=== PATIENT | male | born 1960 | race Caucasian/White ===

== ENCOUNTER 2019-02-22 10:30 | Inpatient (IN) | payer OTHER ==
[~2019-02-22] VITALS: Ht 182.9 cm; Wt 101.6 kg
[~2019-02-22 10:30] MED LIST: ASPI-1044 PO; BUPR1FIL3 SL
[2019-03-15] VITALS (44 sets, daily range): BP systolic 113–159; BP diastolic 62–118; PULSE 60–128; RESP 14–26
[2019-03-15] MEDS ORDERED: LANSOPRAZOLE 30 MG CAP PO ONE (07:00)
[2019-03-15] MEDS ORDERED: CEFAZOLIN 1 GM/50 ML (PMX) 50 ML IVPB ONE (07:00)
[2019-03-15] MEDS ORDERED: TRANEXAMIC ACID 1GM/100ML(PMX) 100 ML INTRA-OP X1 IVPB ONE (07:00)
[2019-03-15] MEDS ORDERED: LACTATED RINGER'S 1,000 ML IV SCH (07:00)
[2019-03-15] MEDS ORDERED: ACETAMINOPHEN 500 MG TAB PO ONE (07:00)
[2019-03-15] MEDS ORDERED: ONDANSETRON 4 MG INJ IV ONE (07:00)
[2019-03-15] MEDS ORDERED: TRANEXAMIC ACID 1GM/100ML(PMX) 100 ML PRE-OP X1 IVPB ONE (07:00)
[2019-03-15] MEDS ORDERED: oxyCODONE (CR) 10 MG TAB [oxyCONTIN] PO ONE (07:00)
[2019-03-15] MEDS ORDERED: DEXAMETHASONE 4 MG/ML 1 ML INJ IV ONE (07:00)
[2019-03-15] MEDS ORDERED: POLYMYXIN B 500000 UNIT INJ ONE (09:58)
--- NOTE | 2019-03-15 10:15 | PREAC ---
Date/Time of Note Date/Time of Note DATE: 03/15/19 TIME: 10:14 Anesthesia Eval and Record Evaluation Time Pre-Procedure Interview DATE: 03/15/19 TIME: 10:14 Age 58 Sex male NPO: 8 hrs Preoperative diagnosis left knee primary OA Planned procedure left knee total replacement Past Medical History Past Medical History: None Surgery & Anesthesia Issues No known issue Meds Anticoagulation: No Beta Joanie within 24 hr: No Reason Beta Joanie not given: Pt. not on B-Joanie Reported Medications Buprenorphine Hcl-Naloxone Hcl (Suboxone SL) 8-2 Mg Film, 1 FILM SL DAILY, FILM 03/15/19 Current Medications Ropivacaine/ Morphine Sulfate/ Clonidine/ Epinephrine/ Ketorolac Tromethamine/ Vancomycin HCl/ Sodium Chloride INTRA-OP INJ ; Start 03/15/19 at 16:30 Lactated Ringer's 1,000 ml @ 125 mls/hr Q8H IV Last administered on 03/15/19at 09:40; Admin Dose 125 MLS/HR; Start 03/15/19 at 07:00; Stop 03/15/19 at 14:59 Meds reviewed: Yes Allergies Coded Allergies: No Known Allergy (Unverified , 03/15/19) Allergies Reviewed: Yes Labs/Studies Labs Reviewed: Reviewed by anesthesiologist test: N/A Studies: ECG (sr), CXR (nl) Pre-procedure Exam Last vitals Vital Signs Date Temp Pulse Resp B/P (MAP) Pulse Ox O2 O2 Flow FiO2 Time Delivery Rate 03/15/19 97.7 75 16 157/95 98 Room Air 10:00 (115) Airway: Adequate mouth opening Mallampati: Mallampati I 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) Lung: Normal Heart: Normal ASA Physical Status ASA physical status: 1 Emergency: None Planned Anesthetic General/MAC: LMA Neuraxial: Spinal Nerve block: Femoral (left) Planned Pain Management Single shot nerve block, Parenteral pain med Pre-operative Attestations Prior to commencing anesthesia and surgery, the patient was re-evaluated, there was verification of: *The patient's identity *The results of appropriate recent lab work and preoperative vital signs *The above evaluation not changing prior to induction *Anesthetic plan, risk benefits, alternative and complications discussed with patient/family; questions answered; patient/family understands, accepts and wishes to proceed. TIKI RICHTER MD Mar 15, 2019 10:14
[2019-03-15] MEDS ORDERED: TRANEXAMIC ACID 1GM/100ML(PMX) 100 ML ONE ×3 (10:26→13:17)
[2019-03-15] MEDS ORDERED: PROPOFOL 20 ML ONE (10:26)
[2019-03-15] MEDS ORDERED: CEFAZOLIN 1 GM INJ ONE (10:26)
[2019-03-15] MEDS ORDERED: ONDANSETRON 4 MG INJ ONE (10:27)
[2019-03-15] MEDS ORDERED: morphine SULFATE/PF (10 MG/10 ML) INJ ONE (10:27)
[2019-03-15] MEDS ORDERED: KETOROLAC 30 MG INJ ONE (10:27)
[2019-03-15] MEDS ORDERED: METOCLOPRAMIDE 10 MG INJ ONE (10:27)
[2019-03-15] MEDS ORDERED: MIDAZOLAM 1 MG/ML 2 ML INJ ONE (10:27)
[2019-03-15] MEDS ORDERED: HYDROmorphONE 1 MG/5 ML IV SYRINGE IV PRN ×2 (10:30)
[2019-03-15] MEDS ORDERED: ONDANSETRON 4 MG INJ IV PRN (10:30)
[2019-03-15] MEDS ORDERED: FENTAnyl 50 MCG/ML VIAL IV PRN ×3 (10:30)
[2019-03-15] MEDS ORDERED: EPHEDrine 25 MG/5 ML SYG IV PRN (10:30)
[2019-03-15] MEDS ORDERED: MEPERIDINE 25 MG INJ IV PRN (10:30)
[2019-03-15] MEDS ORDERED: DIPHENHYDRAMINE 50 MG INJ IV PRN (10:30)
--- NOTE | 2019-03-15 10:35 | HPN ---
Date/Time of Note Date/Time of Note DATE: 03/15/19 TIME: 10:35 Interval H&P Admission Note Pt. seen H&P reviewed: No system changes TARIQ CABRAL MD Mar 15, 2019 10:35
[2019-03-15] MEDS ORDERED: FENTAnyl 50 MCG/ML VIAL ONE (10:51)
[2019-03-15] MEDS ORDERED: ACETAMINOPHEN 1000MG/100ML IV 100 ML IVPB ONE (11:30)
[2019-03-15] MEDS ORDERED: BACITRACIN 50000 UNITS INJ IRR ONE (11:57)
[2019-03-15] MEDS ORDERED: ROPIVACAINE 0.2% 20 ML VIAL ONE (13:37)
--- NOTE | 2019-03-15 14:17 | SIPON ---
Date/Time of Note Date/Time of Note DATE: 03/15/19 TIME: 14:16 Operative Report Preoperative Diagnosis Left Knee Osteoarthritis Postoperative Diagnosis Same Operation/Procedure Performed Complex Left Total Knee Arthroplasty Surgeon Krysta Quevedo MD certified physician assistant Santiago Seymour MD Anesthesia: spinal Estimated blood loss: other Transfusion Required none Specimen bone Grafts/Implants none Complications none KRYSTA QUEVEDO MD Mar 15, 2019 14:17
[2019-03-15] MEDS ORDERED: NALOXONE (0.4 MG/ML) INJ IV PRN (14:30)
[2019-03-15] MEDS ORDERED: MAGNESIUM HYDROXIDE 30ML CUP PO PRN (14:30)
[2019-03-15] MEDS ORDERED: NA PHOSPHATE/BIPHOS 133 ML ENEMA PR PRN (14:30)
[2019-03-15] MEDS ORDERED: SENNA/DOCUSATE NA (8.6MG/50MG) TAB PO PRN (14:30)
[2019-03-15] MEDS ORDERED: DOCUSATE SODIUM 100 MG CAP PO ONE (14:30)
[2019-03-15] MEDS ORDERED: BISACODYL 10 MG SUPP PR PRN (14:30)
--- NOTE | 2019-03-15 14:37 | OPR ---
Date/Time of Note Date/Time of Note DATE: 03/15/19 TIME: 14:26 Operative Report Free Text/Dictation DATE OF OPERATION: March 15, 2019 SURGEON: Tariq Cabral MD BULKING MACHINE OPERATOR: Cristóbal Seymour MD PREOPERATIVE DIAGNOSIS: Left knee osteoarthritis. POSTOPERATIVE DIAGNOSIS: Left knee osteoarthritis. PROCEDURES PERFORMED: Complex left total knee arthroplasty, CPT code 58828, modifier 22. ANESTHESIOLOGIST: Dr. Susan Barrett ANESTHESIA: Spinal. ESTIMATED BLOOD LOSS: 200 mL. COMPLICATIONS: None. SPECIMENS: Resected bone. DISPOSITION: PACU in stable condition. TOURNIQUET TIME: 107 minutes at 250 mmHg. IMPLANT USED: [employer] size 6 Sarah tibial baseplate, size 7 posterior stabilized Oxinium femur, size 9 high flexion polyethylene, size 35 mm patella. INDICATION FOR PROCEDURE: This is an 58-year-old male with end-stage osteoarthritis of the left knee and significant varus who had failed nono perative management. Risks, benefits, alternatives of surgical intervention were discussed with the patient and informed consent was obtained. The risks of surgery include but are not limited to infection, deep venous thrombosis, pulmonary embolism, damage to nerves and blood vessels, numbness around incision site, stiffness of knee, need for total knee manipulation under anesthesia, need for blood transfuion, heart attack, stroke, risks associated with anesthesia, implant loosening, wear of prosthesis, need for revision surgery, and . DESCRIPTION OF PROCEDURE: The patient was met in the preoperative suite. The correct operative site was confirmed and marked. The patient was then brought into operating room. After induction of anesthesia, the patient was placed in the supine position on the operating room table. A tourniquet was applied to left upper thigh. The left lower extremity was prepped and draped in the usual sterile fashion. Before starting, a timeout was taken to identify the correct operative site and confirm preoperative antibiotics consisting of 1 g of IV Ancef, along with 1 g of tranexamic acid were administered. At this point, the left leg was elevated and exsanguinated with an Esmarch and tourniquet was then insufflated for the above noted time. A midline incision was made and median parapatellar arthrotomy was then completed. The lateral patellar retinacular ligaments were released. A sleeve of tissue was released from the medial proximal tibia. The cruciate ligaments and the menisci were then excised. At this point, the custom distal femur cutting block was then pinned and 9.5 mm was resected from the distal femur. The 4-in-1 cutting block, size 7 was then placed. An rafy wing was used to confirm that notching of the anterior cortex of the femur would not occur. The anterior and posterior condylar cuts were completed followed by the anterior and posterior chamfer cuts. The osteophytes were then removed with a rongeur. At this point, the tibia was subluxed anteriorly. Appropriate retractors were placed. The custom tibial cutting block was then pinned. The drop was used to ensure the correct alignment. Approximately 11 mm was resected off the lateral tibial plateau. There was no resection off the medial tibial plateau due to his varus deformity. Osteophytes were then removed. At this point, the flexion extension gaps were checked with a 9 mm gap radio program checker and noted to be tight in both extension and flexion. Further medial release was performed, and additional 2 mm was resected from the proximal tibia. The posterior medial capsule was also released. Further osteophytes were removed from the posterior medial cortex of the tibia. The flexion and extension gaps were checked at this point with a 9 mm gap radio program checker, and noted to be equal. Next, trial 7 femur was then pinned and the box cut was then completed. The tibia was then subluxed anteriorly and measured to size 6. The tibial tray was then pinned and a keel was then punched. A medial tibial osteotomy was performed. The trial components were placed with a 9 mm polyethylene and noted to have full extension and greater than 120 degrees of flexion. The patella was then subluxed laterally and sized to 24 mm. Approximately, 9 mm was resected. The patellar was sized to 35 mm. The button was placed and noted to have excellent patellar tracking. The trial components were removed. All bony surfaces were pulse lavaged and dried. The appropriate size components were then cemented and the knee was held in extension with a 9 mm trial polyethylene until the cement cured. Once the cement had cured, the trial polyethylene was removed and the appropriate size polyethylene was then placed. The tranexamic acid was redosed. The cocktail was then injected. The extensor mechanism was closed using #1 Stratafix and the subcutaneous tissue with 2-0 Vicryl and the skin with 4-0 Monocryl. Steri-Strips were applied along with a sterile dressing. There were no complications. The patient was transferred to PACU in stable condition. POSTOPERATIVE CARE: The patient will be weightbearing as tolerated. The patient will work with physical therapy, and will receive two additional doses of IV antibiotics along with aspirin 81 mg p.o. b.i.d. for 6 weeks. Upon discharge, patient will follow up in my office within 2 weeks postoperatively. Modifier 22: This case requires a modifier 22 given the significant varus deformity of the patient, technical difficulty, and length of case. TARIQ CABRAL MD Mar 15, 2019 14:37
[2019-03-15] MEDS: CEFAZOLIN 2 GM/50 ML (PMX) 50 ML IVPB SCH ×2 (15:36→23:38)
[2019-03-15] MEDS: HYDROmorphONE 1 MG/5 ML IV SYRINGE IV PRN ×4 (16:29→18:32)
[2019-03-15] MEDS ORDERED: HIP PAIN COCKTAIL VANCO INJ SCH ×7 (16:30)
[2019-03-15] MEDS ORDERED: HYDROmorphONE 1 MG/5 ML IV SYRINGE IV ONE (18:18)
--- NOTE | 2019-03-15 18:55 | CONS ---
Assessment/Plan Assessment/Plan Assessment/Plan (Daily) Assessment and plan: 58-year-old male prior history of presumed arthritis and prior knee surgeries who was brought in for total knee replacement of the left knee. #Left knee pain: Again status post total left knee replacement occurred earlier today -Continue care as ordered by primary orthopedic surgery team including pain control medications, fluids, therapy, labs We will continue to follow along with you Consultation Date/Type/Reason Admit Date/Time Mar 15, 2019 at 08:30 Date/Time of Note DATE: 03/15/19 TIME: 18:54 Hx of Present Illness 58-year-old male prior history of presumed arthritis and prior knee surgeries who was brought in for total knee replacement of the left knee. Patient underwent this earlier today. Presently denies any chest pain, shortness of breath, upper lower GI bleeding, nausea vomiting, fever chills, diarrhea or constipation. Past Medical History Home Meds Reported Medications Buprenorphine Hcl-Naloxone Hcl (Suboxone SL) 8-2 Mg Film, 1 FILM SL DAILY, FILM 03/15/19 Medications Current Medications Ropivacaine/ Morphine Sulfate/ Clonidine/ Epinephrine/ Ketorolac Tromethamine/ Vancomycin HCl/ Sodium Chloride INTRA-OP INJ ; Start 03/15/19 at 16:30 Hydromorphone HCl (Dilaudid) 0.4 mg PACU PRN IV MOD PAIN 4-6 Last administered on 03/15/19at 18:32; Admin Dose 0.4 MG; Start 03/15/19 at 10:30; Stop 03/15/19 at 23:00 IV Flush (NS 3 ml) 3 ml PER PROTOCOL IV ; Start 03/15/19 at 14:30 Oxycodone HCl (Roxicodone) 5 mg Q4H PRN PO .PAIN; Start 03/15/19 at 14:30 Acetaminophen (Tylenol Tab) 1,000 mg Q8 PO ; Start 03/15/19 at 22:00 Ketorolac Tromethamine (Toradol) 15 mg Q6H PRN IV .PAIN; Start 03/15/19 at 14:30 Cefazolin Sodium/ Dextrose 50 ml @ 100 mls/hr Q8H IVPB Last administered on 03/15/19at 15:36; Admin Dose 100 MLS/HR; Start 03/15/19 at 15:00; Stop 03/16/19 at 07:29 Celecoxib (Celebrex) 100 mg BID PO ; Start 03/16/19 at 09:00 Gabapentin (Neurontin) 100 mg TID PO ; Start 03/15/19 at 21:00 Pantoprazole (Protonix Tab) 40 mg DAILY@06 PO ; Start 03/17/19 at 06:00 Docusate Sodium (Colace) 200 mg BID PO ; Start 03/16/19 at 09:00; Stop 03/19/19 at 08:59 Simethicone (Mylicon) 80 mg TID PRN PO .GAS; Start 03/15/19 at 14:30 Senna/Docusate Sodium (Senokot-S) 2 tab BID PRN PO .CONSTIPATION; Start 03/15/19 at 14:30 Magnesium Hydroxide (Milk Of Mag) 30 ml HS PRN PO .CONSTIPATION; Start 03/15/19 at 14:30 Bisacodyl (Dulcolax Supp) 10 mg DAILY PRN [place] .CONSTIPATION; Start 03/15/19 at 14:30 Sodium Biphosphate/ Sodium Phosphate (Fleet Enema) 133 ml DAILY PRN [place] .CONSTIPATION; Start 03/15/19 at 14:30 Naloxone HCl (Narcan) 0.2 mg Q2M PRN IV .RESP RATE; Start 03/15/19 at 14:30 Aspirin (Halfprin) 81 mg BID PO ; Start 03/16/19 at 09:00 Allergies: Coded Allergies: No Known Allergy (Unverified , 03/15/19) Past Surgical History Past Surgical Hx: other (Right knee surgery x2, prior left knee surgery, left shoulder surgery, triceps surgery) Social History Alcohol Use: none Smoking Status: Never smoker Drug Use: none Exam/Review of Systems Exam Vitals Vital Signs Date Temp Pulse Resp B/P (MAP) Pulse Ox O2 O2 Flow FiO2 Time Delivery Rate 03/15/19 96 26 124/81 95 Room Air 17:43 (95) 03/15/19 3.0 16:48 03/15/19 98.0 14:10 Exam GENERAL: lying in bed, in no apparent distress HEENT: Moist mucous membranes, pink conjunctiva, extraocular movements intact without pain. NEURO: no focal deficits CARDIAC: Regular rate and rhythm, no murmurs rubs or gallops LUNGS: Clear bilaterally no wheezing crackles or stridor ABDOMEN: Soft nontender, no guarding, no rigidity, no rebound, no psoas sign no obturator sign. Normoactive bowel sounds EXTREMITIES: Decreased range of motion left lower extremity PSYCH: Normal affect without agitation or irritability Medications Medication Current Medications Ropivacaine/ Morphine Sulfate/ Clonidine/ Epinephrine/ Ketorolac Tromethamine/ Vancomycin HCl/ Sodium Chloride INTRA-OP INJ ; Start 03/15/19 at 16:30 Hydromorphone HCl (Dilaudid) 0.4 mg PACU PRN IV MOD PAIN 4-6 Last administered on 03/15/19at 18:32; Admin Dose 0.4 MG; Start 03/15/19 at 10:30; Stop 03/15/19 at 23:00 IV Flush (NS 3 ml) 3 ml PER PROTOCOL IV ; Start 03/15/19 at 14:30 Oxycodone HCl (Roxicodone) 5 mg Q4H PRN PO .PAIN; Start 03/15/19 at 14:30 Acetaminophen (Tylenol Tab) 1,000 mg Q8 PO ; Start 03/15/19 at 22:00 Ketorolac Tromethamine (Toradol) 15 mg Q6H PRN IV .PAIN; Start 03/15/19 at 14:30 Cefazolin Sodium/ Dextrose 50 ml @ 100 mls/hr Q8H IVPB Last administered on 03/15/19at 15:36; Admin Dose 100 MLS/HR; Start 03/15/19 at 15:00; Stop 03/16/19 at 07:29 Celecoxib (Celebrex) 100 mg BID PO ; Start 03/16/19 at 09:00 Gabapentin (Neurontin) 100 mg TID PO ; Start 03/15/19 at 21:00 Pantoprazole (Protonix Tab) 40 mg DAILY@06 PO ; Start 03/17/19 at 06:00 Docusate Sodium (Colace) 200 mg BID PO ; Start 03/16/19 at 09:00; Stop 03/19/19 at 08:59 Simethicone (Mylicon) 80 mg TID PRN PO .GAS; Start 03/15/19 at 14:30 Senna/Docusate Sodium (Senokot-S) 2 tab BID PRN PO .CONSTIPATION; Start 03/15/19 at 14:30 Magnesium Hydroxide (Milk Of Mag) 30 ml HS PRN PO .CONSTIPATION; Start 03/15/19 at 14:30 Bisacodyl (Dulcolax Supp) 10 mg DAILY PRN [place] .CONSTIPATION; Start 03/15/19 at 14:30 Sodium Biphosphate/ Sodium Phosphate (Fleet Enema) 133 ml DAILY PRN [place] .CONSTIPATION; Start 03/15/19 at 14:30 Naloxone HCl (Narcan) 0.2 mg Q2M PRN IV .RESP RATE; Start 03/15/19 at 14:30 Aspirin (Halfprin) 81 mg BID PO ; Start 03/16/19 at 09:00 LISA BILLS Mar 15, 2019 18:55
[2019-03-15] MEDS: KETOROLAC 15 MG INJ IV PRN (20:26)
[2019-03-15] MEDS: ACETAMINOPHEN 500 MG TAB PO SCH (22:17)
[2019-03-15] MEDS: oxyCODONE 5 MG TAB PO PRN (22:18)
[2019-03-16 00:27] VITALS: BP 95/53; PULSE 75; RESP 18
[2019-03-16] MEDS: oxyCODONE 5 MG TAB PO PRN ×3 (02:35→10:17)
[2019-03-16] MEDS: KETOROLAC 15 MG INJ IV PRN (02:35)
[2019-03-16 04:10] VITALS: BP 119/58; PULSE 71; RESP 18
[2019-03-16] MEDS: CEFAZOLIN 2 GM/50 ML (PMX) 50 ML IVPB SCH (06:40)
[2019-03-16] MEDS: ACETAMINOPHEN 500 MG TAB PO SCH (06:41)
[2019-03-16] MEDS: GABAPENTIN 100 MG CAP PO SCH ×4 (06:43→20:34)
[2019-03-16 07:32] VITALS: BP 105/65; PULSE 72; RESP 15
[2019-03-16] MEDS: DOCUSATE SODIUM 100 MG CAP PO SCH ×2 (09:47→21:00)
[2019-03-16] MEDS: CELECOXIB 100 MG CAP PO SCH ×2 (09:49→20:34)
[2019-03-16] MEDS: ASPIRIN (EC) 81 MG TAB PO SCH ×2 (09:49→20:34)
[2019-03-16] MEDS ORDERED: KETOROLAC 30 MG INJ IV PRN (10:00)
--- NOTE | 2019-03-16 10:05 | PAC ---
Date/Time of Note Date/Time of Note DATE: 03/16/19 TIME: 10:04 Post-Anesthesia Notes Post-Anesthesia Note Last documented vital signs Vital Signs Date Temp Pulse Resp B/P (MAP) Pulse Ox O2 O2 Flow FiO2 Time Delivery Rate 03/16/19 98.7 72 15 105/65 96 07:32 (78) 03/15/19 Room Air 23:00 03/15/19 3.0 16:48 Activity: WNL Respiratory function: WNL Cardiovascular function: WNL Mental status: Baseline Pain reasonably controlled: Yes Hydration appropriate: Yes Nausea/Vomiting absent: No TIKI RICHTER MD Mar 16, 2019 10:05
--- NOTE | 2019-03-16 10:06 | OPPN ---
Date/Time of Note Date/Time of Note DATE: 03/16/19 TIME: 10:05 Anesthesia Follow up Anesthesia Follow up Last documented vital signs Vital Signs Date Temp Pulse Resp B/P (MAP) Pulse Ox O2 O2 Flow FiO2 Time Delivery Rate 03/16/19 98.7 72 15 105/65 96 07:32 (78) 03/15/19 Room Air 23:00 03/15/19 3.0 16:48 Respiratory function: WNL Cardiovascular function: WNL Comments A 59 year ood male s/p GA spinal duramorph for post op pain after knee replacement, POD #1is doung fine. No headache, N/V, itching, neural deficit, pain. TIKI RICHTER MD Mar 16, 2019 10:06
[2019-03-16] MEDS ORDERED: ACETAMINOPHEN 1000MG/100ML IV 100 ML ONE (10:11)
[2019-03-16] MEDS ORDERED: KETOROLAC 30 MG INJ ONE (10:11)
[2019-03-16] MEDS ORDERED: ACETAMINOPHEN 1000MG/100ML IV 100 ML IVPB SCH (10:30)
--- NOTE | 2019-03-16 14:16 | PN ---
Date/Time of Note Date/Time of Note DATE: 03/16/19 TIME: 14:11 Assessment/Plan VTE Prophylaxis Risk score (from Ns)>0 risk: 7 SCD applied (from Ns): Yes (Right lower extremity) Pharmacological prophylaxis: NA/contraindicated Pharm contraindication: other (Pharmacological DVT prophylaxis per orthopedic surgeon recommendations. On aspirin.) Lines/Catheters [facility] Saline Lock Assessment/Plan Hospital Course Assessment and plan #Left knee osteoarthritis Continue with analgesics Physical therapy per surgeon Patient status post total left knee replacement Continue with wound care. Disposition plan. Continue with PT. Continue with analgesics. Further rec ommendations pending clinical course. Continue current TX. Discussed POC with Dr. Lopez Result Diagram: 03/16/1951803/16/19518 Results 24hrs Laboratory Tests Test 03/16/19 05:19 03/16/19 07:04 White Blood Count 8.7 Red Blood Count 4.18 L Hemoglobin 12.4 L Hematocrit 36.4 L Mean Corpuscular Volume 87.1 Mean Corpuscular Hemoglobin 29.7 Mean Corpuscular Hemoglobin Concent 34.1 Red Cell Distribution Width 13.8 Platelet Count 170 Mean Platelet Volume 9.9 Immature Granulocytes % 0.500 H Neutrophils % 68.4 Lymphocytes % 15.1 Monocytes % 15.3 H Eosinophils % 0.5 Basophils % 0.2 Nucleated Red Blood Cells % 0.0 Immature Granulocytes # 0.040 H Neutrophils # 6.0 Lymphocytes # 1.3 Monocytes # 1.3 H Eosinophils # 0.0 Basophils # 0.0 Nucleated Red Blood Cells # 0.0 Sodium Level 135 Potassium Level 3.6 Chloride Level 103 Carbon Dioxide Level 25 Anion Gap 7 Blood Urea Nitrogen 16 Creatinine 0.84 Est Glomerular Filtrat Rate mL/min > 60 Glucose Level 110 Calcium Level 8.3 L Lab Scanned Report REFERENCE LAB Subjective 24 Hr Interval Summary Free Text/Dictation Resting in bed during visit. Still has some pain on left lower extremity Exam/Review of Systems Exam Vitals Vital Signs Date Temp Pulse Resp B/P (MAP) Pulse Ox O2 O2 Flow FiO2 Time Delivery Rate 03/16/19 98.7 72 15 105/65 96 07:32 (78) 03/15/19 Room Air 23:00 03/15/19 3.0 16:48 Intake and Output 03/15/19 03/15/19 03/16/19 1515:00 23:00 07:00 IntakeIntake Total 2400 ml 500 ml 50 ml OutputOutput Total 50 ml BalanceBalance 2350 ml 500 ml 50 ml Constitutional: alert, oriented Psych: nl mood/affect Head: normocephalic Eyes: nl conjunctiva Neck: supple, non-tender Respiratory: clear to auscultation Cardiovascular: regular rate and rhythm Gastrointestinal: soft, non-tender Musculoskeletal: other (dressing LLE ) Neurological: PAPERHANGER II-XII intact, nl mental status, nl speech Results Results 24hrs Laboratory Tests Test 03/16/19 05:19 03/16/19 07:04 White Blood Count 8.7 Red Blood Count 4.18 L Hemoglobin 12.4 L Hematocrit 36.4 L Mean Corpuscular Volume 87.1 Mean Corpuscular Hemoglobin 29.7 Mean Corpuscular Hemoglobin Concent 34.1 Red Cell Distribution Width 13.8 Platelet Count 170 Mean Platelet Volume 9.9 Immature Granulocytes % 0.500 H Neutrophils % 68.4 Lymphocytes % 15.1 Monocytes % 15.3 H Eosinophils % 0.5 Basophils % 0.2 Nucleated Red Blood Cells % 0.0 Immature Granulocytes # 0.040 H Neutrophils # 6.0 Lymphocytes # 1.3 Monocytes # 1.3 H Eosinophils # 0.0 Basophils # 0.0 Nucleated Red Blood Cells # 0.0 Sodium Level 135 Potassium Level 3.6 Chloride Level 103 Carbon Dioxide Level 25 Anion Gap 7 Blood Urea Nitrogen 16 Creatinine 0.84 Est Glomerular Filtrat Rate mL/min > 60 Glucose Level 110 Calcium Level 8.3 L Lab Scanned Report REFERENCE LAB Medications Medication Current Medications IV Flush (NS 3 ml) 3 ml PER PROTOCOL IV ; Start 03/15/19 at 14:30 Celecoxib (Celebrex) 100 mg BID PO Last administered on 03/16/19at 09:49; Admin Dose 100 MG; Start 03/16/19 at 09:00 Gabapentin (Neurontin) 100 mg TID PO Last administered on 03/16/19at 12:53; Admin Dose 100 MG; Start 03/15/19 at 21:00 Pantoprazole (Protonix Tab) 40 mg DAILY@06 PO ; Start 03/17/19 at 06:00 Docusate Sodium (Colace) 200 mg BID PO Last administered on 03/16/19at 09:47; Admin Dose 200 MG; Start 03/16/19 at 09:00; Stop 03/19/19 at 08:59 Simethicone (Mylicon) 80 mg TID PRN PO .GAS; Start 03/15/19 at 14:30 Senna/Docusate Sodium (Senokot-S) 2 tab BID PRN PO .CONSTIPATION; Start 03/15/19 at 14:30 Magnesium Hydroxide (Milk Of Mag) 30 ml HS PRN PO .CONSTIPATION; Start 03/15/19 at 14:30 Bisacodyl (Dulcolax Supp) 10 mg DAILY PRN [place] .CONSTIPATION; Start 03/15/19 at 14:30 Sodium Biphosphate/ Sodium Phosphate (Fleet Enema) 133 ml DAILY PRN [place] .CONSTIPATION; Start 03/15/19 at 14:30 Naloxone HCl (Narcan) 0.2 mg Q2M PRN IV .RESP RATE; Start 03/15/19 at 14:30 Aspirin (Halfprin) 81 mg BID PO Last administered on 03/16/19at 09:49; Admin Dose 81 MG; Start 03/16/19 at 09:00 Ketorolac Tromethamine (Toradol) 30 mg Q6H IV ; Start 03/16/19 at 16:00; Stop 03/19/19 at 15:59 Oxycodone HCl (Roxicodone) 10 mg Q4H PRN PO .PAIN Last administered on 03/16/19at 13:54; Admin Dose 10 MG; Start 03/16/19 at 14:30 Oxycodone HCl (Oxycontin) 10 mg BID PO ; Start 03/16/19 at 14:30 JAMES LONGO NP Mar 16, 2019 14:16
[2019-03-16] MEDS ORDERED: KETOROLAC 15 MG INJ IV PRN (14:30)
[2019-03-16] MEDS ORDERED: oxyCODONE 5 MG TAB PO PRN (14:30)
[2019-03-16 14:38] VITALS: BP 100/81; PULSE 70; RESP 17
[2019-03-16] MEDS: oxyCODONE (CR) 10 MG TAB [oxyCONTIN] PO SCH ×2 (14:41→21:00)
[2019-03-16] MEDS: KETOROLAC 30 MG INJ IV SCH ×2 (16:04→22:07)
[2019-03-16] MEDS: HYDROmorphONE 1 MG/ML SYG IV PRN ×3 (17:46→23:28)
[2019-03-16 19:20] VITALS: BP 112/69; PULSE 76; RESP 20
[2019-03-17] MEDS: HYDROmorphONE 1 MG/ML SYG IV PRN ×8 (02:30→22:26)
[2019-03-17 02:33] VITALS: BP 124/82; PULSE 72; RESP 17
[2019-03-17] MEDS: KETOROLAC 30 MG INJ IV SCH (04:42)
[2019-03-17] MEDS: PANTOPRAZOLE (EC) 40 MG TAB PO SCH (06:33)
--- NOTE | 2019-03-17 07:48 | CONS ---
Assessment/Plan Assessment/Plan Assessment/Plan (Daily) Status post left knee arthroplasty Past medical history of left knee meniscectomy and repair of anterior cruciate ligament Obesity Left shoulder pain right knee pain At this time his switch patient to OxyContin discontinued Roxanol and start him off and IV Dilaudid for a short period of time and switch him to oral short acting opioids. Since patient was on Suboxone as an outpatient at the time of discharge I will suggest not giving him a prescription for OxyContin or Roxanol. The Suboxone should be adequate pain management with a very long half-life. He can take nonsteroidal anti-inflammatory medications with a PPI to supplement his pain control as an outpatient. He has a pain management physician who cared control any breakthrough pain with other modalities. Consultation Date/Type/Reason Admit Date/Time Mar 15, 2019 at 08:30 Date/Time of Note DATE: 03/17/19 TIME: 07:44 Hx of Present Illness This is a 58-year-old gentleman who underwent a complete left total knee arthroplasty on March 15, 2019. Postoperatively his pain is been out of control I was asked to see patient in pain management consultation. 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 He is 2 days postop and cannot participate fully in physical therapy secondary to pain. Pain is rated as 8/10 with minimal movement with medications primarily with Dilaudid his pain is somewhat better control but it does not last long enough patient was on Toradol Celebrex gabapentin without pain control. Roxano. The pain interferes with his physical therapy mood and overall functioning. 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 Because of that he was begun on methadone to get off short acting opioids and stayed in at 4. Approximately 10 years but has recently been switched over to Suboxone dose unknown. Currently denies nausea vomiting constipation itchiness he is a non-smoker nondrinker denies mental cloudiness sweating fatigue drowsiness at this time patient is not negotiating for her doses of pain control medication is no past medical history of oversedation he does not appear to be intoxicated or unkempt no altercations with long enforcement the past he has not asked for early renewals of his pain medication but asked for some minor adjustments he is not in excruciating pain he is just generally uncomfortable he is more concerned about not being able to do all of necessary physical therapy. He has not asked for pain control medications prescriptions. Constitutional: no complaints, improved Eyes: no complaints ENT: no complaints Respiratory: no complaints Cardiovascular: no complaints Gastrointestinal: no complaints Genitourinary: no complaints Musculoskeletal: no complaints Skin: no complaints Neurologic: no complaints Endocrine: no complaints Lymphatic: no complaints Psychological: no complaints, nl mood/affect Immunologic: no complaints Past Medical History Home Meds Reported Medications Buprenorphine Hcl-Naloxone Hcl (Suboxone SL) 8-2 Mg Film, 1 FILM SL DAILY, FILM 03/15/19 Medications Current Medications IV Flush (NS 3 ml) 3 ml PER PROTOCOL IV ; Start 03/15/19 at 14:30 Celecoxib (Celebrex) 100 mg BID PO Last administered on 03/16/19at 20:34; Admin Dose 100 MG; Start 03/16/19 at 09:00 Gabapentin (Neurontin) 100 mg TID PO Last administered on 03/16/19at 20:34; Admin Dose 100 MG; Start 03/15/19 at 21:00 Pantoprazole (Protonix Tab) 40 mg DAILY@06 PO Last administered on 03/17/19at 06:33; Admin Dose 40 MG; Start 03/17/19 at 06:00 Docusate Sodium (Colace) 200 mg BID PO Last administered on 03/16/19at 09:47; Admin Dose 200 MG; Start 03/16/19 at 09:00; Stop 03/19/19 at 08:59 Simethicone (Mylicon) 80 mg TID PRN PO .GAS; Start 03/15/19 at 14:30 Senna/Docusate Sodium (Senokot-S) 2 tab BID PRN PO .CONSTIPATION; Start 03/15/19 at 14:30 Magnesium Hydroxide (Milk Of Mag) 30 ml HS PRN PO .CONSTIPATION; Start 03/15/19 at 14:30 Bisacodyl (Dulcolax Supp) 10 mg DAILY PRN [place] .CONSTIPATION; Start 03/15/19 at 14:30 Sodium Biphosphate/ Sodium Phosphate (Fleet Enema) 133 ml DAILY PRN [place] .CONSTIPATION; Start 03/15/19 at 14:30 Naloxone HCl (Narcan) 0.2 mg Q2M PRN IV .RESP RATE; Start 03/15/19 at 14:30 Aspirin (Halfprin) 81 mg BID PO Last administered on 03/16/19at 20:34; Admin Dose 81 MG; Start 03/16/19 at 09:00 Ketorolac Tromethamine (Toradol) 30 mg Q6H IV Last administered on 03/17/19at 04:42; Admin Dose 30 MG; Start 03/16/19 at 16:00; Stop 03/19/19 at 15:59 Oxycodone HCl (Oxycontin) 10 mg BID PO Last administered on 03/16/19at 21:00; Admin Dose 10 MG; Start 03/16/19 at 14:30 Hydromorphone HCl (Dilaudid) 2 mg Q3H PRN IV SEVERE PAIN LEVEL 7-10; Start 03/17/19 at 08:30 Allergies: Coded Allergies: No Known Allergy (Unverified , 03/15/19) Past Surgical History Past Surgical Hx: other (Right knee surgery x2, prior left knee surgery, left shoulder surgery, triceps surgery) Family History Significant Family History: no pertinent family hx Social History Alcohol Use: none Smoking Status: Never smoker Drug Use: none Exam/Review of Systems Exam Vitals Vital Signs Date Temp Pulse Resp B/P (MAP) Pulse Ox O2 O2 Flow FiO2 Time Delivery Rate 03/17/19 98.8 72 17 124/82 94 Room Air 02:33 (96) 03/15/19 3.0 16:48 Intake and Output 03/16/19 03/16/19 03/17/19 1414:59 22:59 06:59 IntakeIntake Total 150 ml 250 ml OutputOutput Total 300 ml BalanceBalance 150 ml -50 ml Constitutional: alert, oriented, well developed Eyes: nl conjunctiva, EOMI, nl lids, nl sclera, PERRL; No icteric, No fundi, disc, No other ENMT: No nl external ears & nose, No nl lips & teeth, No nl nasal mucosa & septum, No mucosa pink and moist, No intubated, No tympanic membranes, No other Neck: supple, non-tender; No jvd, No bruits, No masses, No thyromegaly, No nuchal rigidity, No other Respiratory: clear to auscultation, normal air movement; No congested cough, No crackles/rales, No diminished breath sounds, No intercostal retraction, No labored breathing, No respirations, No tactile fremitus, No wheezing, No other Cardiovascular: regular rate and rhythm, nl pulses; No bruits, No diastolic murmur, No edema, No gallop, No irregular rhythm, No jugular venous distention (JVD), No murmurs/extra sounds, No rub, No systolic murmur, No S3, No S4, No other Gastrointestinal: soft, nl liver, spleen, non-tender; No ascites, No bowel sounds, No distended, No firm, No hepatomegaly, No mass, No rebound or guarding, No splenomegaly, No surgical scars, No tender, No other 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, nl mental status, nl speech, nl strength; No confused, No DTR's symmetric, No focal weakness, No lethargic, No numbness, No reflexes, No unresponsive, No other Results Result Diagram: 03/17/19 0534 03/17/19 0534 Results 24hrs Laboratory Tests Test 03/17/19 05:34 White Blood Count 7.9 Red Blood Count 4.21 L Hemoglobin 12.8 L Hematocrit 36.8 L Mean Corpuscular Volume 87.4 Mean Corpuscular Hemoglobin 30.4 Mean Corpuscular Hemoglobin Concent 34.8 Red Cell Distribution Width 14.0 Platelet Count 160 Mean Platelet Volume 9.6 Immature Granulocytes % 0.400 Neutrophils % 63.8 Lymphocytes % 16.8 Monocytes % 17.2 H Eosinophils % 1.5 Basophils % 0.3 Nucleated Red Blood Cells % 0.0 Immature Granulocytes # 0.030 Neutrophils # 5.1 Lymphocytes # 1.3 Monocytes # 1.4 H Eosinophils # 0.1 Basophils # 0.0 Nucleated Red Blood Cells # 0.0 Sodium Level 135 Potassium Level 4.0 Chloride Level 101 Carbon Dioxide Level 29 Anion Gap 5 Blood Urea Nitrogen 12 Creatinine 0.80 Est Glomerular Filtrat Rate mL/min > 60 Glucose Level 117 Calcium Level 8.3 L Medications Medication Current Medications IV Flush (NS 3 ml) 3 ml PER PROTOCOL IV ; Start 03/15/19 at 14:30 Celecoxib (Celebrex) 100 mg BID PO Last administered on 03/16/19at 20:34; Admin Dose 100 MG; Start 03/16/19 at 09:00 Gabapentin (Neurontin) 100 mg TID PO Last administered on 03/16/19 20:34; Admin Dose 100 MG; Start 03/15/19 at 21:00 Pantoprazole (Protonix Tab) 40 mg DAILY@06 PO Last administered on 03/17/19at 06:33; Admin Dose 40 MG; Start 03/17/19 at 06:00 Docusate Sodium (Colace) 200 mg BID PO Last administered on 03/16/19at 09:47; Admin Dose 200 MG; Start 03/16/19 at 09:00; Stop 03/19/19 at 08:59 Simethicone (Mylicon) 80 mg TID PRN PO .GAS; Start 03/15/19 at 14:30 Senna/Docusate Sodium (Senokot-S) 2 tab BID PRN PO .CONSTIPATION; Start 03/15/19 at 14:30 Magnesium Hydroxide (Milk Of Mag) 30 ml HS PRN PO .CONSTIPATION; Start 03/15/19 at 14:30 Bisacodyl (Dulcolax Supp) 10 mg DAILY PRN [place] .CONSTIPATION; Start 03/15/19 at 14:30 Sodium Biphosphate/ Sodium Phosphate (Fleet Enema) 133 ml DAILY PRN [place] .CONSTIPATION; Start 03/15/19 at 14:30 Naloxone HCl (Narcan) 0.2 mg Q2M PRN IV .RESP RATE; Start 03/15/19 at 14:30 Aspirin (Halfprin) 81 mg BID PO Last administered on 03/16/19at 20:34; Admin Dose 81 MG; Start 03/16/19 at 09:00 Ketorolac Tromethamine (Toradol) 30 mg Q6H IV Last administered on 03/17/19at 04:42; Admin Dose 30 MG; Start 03/16/19 at 16:00; Stop 03/19/19 at 15:59 Oxycodone HCl (Oxycontin) 10 mg BID PO Last administered on 03/16/19at 21:00; Admin Dose 10 MG; Start 03/16/19 at 14:30 Hydromorphone HCl (Dilaudid) 2 mg Q3H PRN IV SEVERE PAIN LEVEL 7-10; Start 03/17/19 at 08:30 IGGY OLSON Mar 17, 2019 07:48
[2019-03-17 08:11] VITALS: BP 86/54; PULSE 75; RESP 18
[2019-03-17] MEDS: GABAPENTIN 100 MG CAP PO SCH ×3 (09:20→20:22)
[2019-03-17] MEDS: oxyCODONE (CR) 10 MG TAB [oxyCONTIN] PO SCH ×2 (09:21→20:23)
[2019-03-17] MEDS: DOCUSATE SODIUM 100 MG CAP PO SCH ×2 (09:21→21:00)
[2019-03-17] MEDS: ASPIRIN (EC) 81 MG TAB PO SCH ×2 (09:21→20:22)
[2019-03-17] MEDS: CELECOXIB 100 MG CAP PO SCH ×2 (09:21→20:22)
[2019-03-17 10:23] VITALS: BP 124/80
[2019-03-17] MEDS ORDERED: SOD CHLORIDE 0.9% 1,000 ML IV ONE (10:30)
--- NOTE | 2019-03-17 13:32 | PN ---
Date/Time of Note Date/Time of Note DATE: 03/17/19 TIME: 13:29 Assessment/Plan VTE Prophylaxis Risk score (from Nsg)>0 risk: 7 SCD applied (from Nsg): Yes (rle) Pharmacological prophylaxis: other (Pharmacological DVT prophylaxis per orthopedic surgeon recommendations. On aspirin.) Lines/Catheters IV Catheter Type (from Nrsg): Saline Lock Assessment/Plan Hospital Course Assessment and plan #Left knee osteoarthritis Continue with analgesics - Pain management consult following Physical therapy per surgeon Patient status post total left knee replacement Continue with wound care. Disposition plan. Continue with PT. Continue with analgesics. Stable at present. f/u surgeon recommendations Discussed POC with Dr. Lopez Result Diagram: 03/17/19 0534 03/17/19 0534 Results 24hrs Laboratory Tests Test 03/17/19 05:34 White Blood Count 7.9 Red Blood Count 4.21 L Hemoglobin 12.8 L Hematocrit 36.8 L Mean Corpuscular Volume 87.4 Mean Corpuscular Hemoglobin 30.4 Mean Corpuscular Hemoglobin Concent 34.8 Red Cell Distribution Width 14.0 Platelet Count 160 Mean Platelet Volume 9.6 Immature Granulocytes % 0.400 Neutrophils % 63.8 Lymphocytes % 16.8 Monocytes % 17.2 H Eosinophils % 1.5 Basophils % 0.3 Nucleated Red Blood Cells % 0.0 Immature Granulocytes # 0.030 Neutrophils # 5.1 Lymphocytes # 1.3 Monocytes # 1.4 H Eosinophils # 0.1 Basophils # 0.0 Nucleated Red Blood Cells # 0.0 Sodium Level 135 Potassium Level 4.0 Chloride Level 101 Carbon Dioxide Level 29 Anion Gap 5 Blood Urea Nitrogen 12 Creatinine 0.80 Est Glomerular Filtrat Rate mL/min > 60 Glucose Level 117 Calcium Level 8.3 L Subjective 24 Hr Interval Summary Free Text/Dictation reports good pain control at this time. no s/s of distress. Exam/Review of Systems Exam Vitals Vital Signs Date Temp Pulse Resp B/P (MAP) Pulse Ox O2 O2 Flow FiO2 Time Delivery Rate 03/17/19 124/80 10:23 (95) 03/17/19 98.9 75 18 100 Room Air 08:11 03/15/19 3.0 16:48 Intake and Output 03/16/19 03/16/19 03/17/19 1414:59 22:59 06:59 IntakeIntake Total 150 ml 250 ml OutputOutput Total 300 ml BalanceBalance 150 ml -50 ml Exam Constitutional: alert, oriented Psych: nl mood/affect Head: normocephalic Eyes: nl conjunctiva Neck: supple, non-tender Respiratory: clear to auscultation Cardiovascular: regular rate and rhythm Gastrointestinal: soft, non-tender Musculoskeletal: other (dressing LLE ) 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, nl mental status, nl speech Results Results 24hrs Laboratory Tests Test 03/17/19 05:34 White Blood Count 7.9 Red Blood Count 4.21 L Hemoglobin 12.8 L Hematocrit 36.8 L Mean Corpuscular Volume 87.4 Mean Corpuscular Hemoglobin 30.4 Mean Corpuscular Hemoglobin Concent 34.8 Red Cell Distribution Width 14.0 Platelet Count 160 Mean Platelet Volume 9.6 Immature Granulocytes % 0.400 Neutrophils % 63.8 Lymphocytes % 16.8 Monocytes % 17.2 H Eosinophils % 1.5 Basophils % 0.3 Nucleated Red Blood Cells % 0.0 Immature Granulocytes # 0.030 Neutrophils # 5.1 Lymphocytes # 1.3 Monocytes # 1.4 H Eosinophils # 0.1 Basophils # 0.0 Nucleated Red Blood Cells # 0.0 Sodium Level 135 Potassium Level 4.0 Chloride Level 101 Carbon Dioxide Level 29 Anion Gap 5 Blood Urea Nitrogen 12 Creatinine 0.80 Est Glomerular Filtrat Rate mL/min > 60 Glucose Level 117 Calcium Level 8.3 L Medications Medication Current Medications IV Flush (NS 3 ml) 3 ml PER PROTOCOL IV ; Start 03/15/19 at 14:30 Celecoxib (Celebrex) 100 mg BID PO Last administered on 03/17/19at 09:21; Admin Dose 100 MG; Start 03/16/19 at 09:00 Gabapentin (Neurontin) 100 mg TID PO Last administered on 03/17/19at 13:10; Admin Dose 100 MG; Start 03/15/19 at 21:00 Pantoprazole (Protonix Tab) 40 mg DAILY@06 PO Last administered on 03/17/19at 06:33; Admin Dose 40 MG; Start 03/17/19 at 06:00 Docusate Sodium (Colace) 200 mg BID PO Last administered on 03/17/19at 09:21; Admin Dose 200 MG; Start 03/16/19 at 09:00; Stop 03/19/19 at 08:59 Simethicone (Mylicon) 80 mg TID PRN PO .GAS; Start 03/15/19 at 14:30 Senna/Docusate Sodium (Senokot-S) 2 tab BID PRN PO .CONSTIPATION; Start 03/15/19 at 14:30 Magnesium Hydroxide (Milk Of Mag) 30 ml HS PRN PO .CONSTIPATION; Start 03/15/19 at 14:30 Bisacodyl (Dulcolax Supp) 10 mg DAILY PRN [place] .CONSTIPATION; Start 03/15/19 at 14:30 Sodium Biphosphate/ Sodium Phosphate (Fleet Enema) 133 ml DAILY PRN [place] .CONSTIPATION; Start 03/15/19 at 14:30 Naloxone HCl (Narcan) 0.2 mg Q2M PRN IV .RESP RATE; Start 03/15/19 at 14:30 Aspirin (Halfprin) 81 mg BID PO Last administered on 03/17/19at 09:21; Admin Dose 81 MG; Start 03/16/19 at 09:00 Oxycodone HCl (Oxycontin) 10 mg BID PO Last administered on 03/17/19 09:21; Admin Dose 10 MG; Start 03/16/19 at 14:30 Hydromorphone HCl (Dilaudid) 2 mg Q3H PRN IV SEVERE PAIN LEVEL 7-10 Last administered on 03/17/19at 10:42; Admin Dose 2 MG; Start 03/17/19 at 08:30 JAMES LONGO NP Mar 17, 2019 13:31
[2019-03-17 20:47] VITALS: BP 126/73; PULSE 81; RESP 20
[2019-03-17] MEDS: NACL 0.9% 3 ML SYG IV SCH (22:41)
[2019-03-18] MEDS: HYDROmorphONE 1 MG/ML SYG IV PRN ×6 (01:28→19:37)
[2019-03-18 02:30] VITALS: BP 118/80; PULSE 64; RESP 18
[2019-03-18] MEDS: PANTOPRAZOLE (EC) 40 MG TAB PO SCH (07:41)
[2019-03-18 08:13] VITALS: BP 105/68; PULSE 71; RESP 18
[2019-03-18] MEDS: CELECOXIB 100 MG CAP PO SCH ×2 (09:12→20:52)
[2019-03-18] MEDS: DOCUSATE SODIUM 100 MG CAP PO SCH ×2 (09:13→20:52)
[2019-03-18] MEDS: ASPIRIN (EC) 81 MG TAB PO SCH ×2 (09:14→21:08)
[2019-03-18] MEDS: GABAPENTIN 100 MG CAP PO SCH ×3 (09:14→20:52)
[2019-03-18] MEDS: oxyCODONE (CR) 10 MG TAB [oxyCONTIN] PO SCH ×2 (09:15→20:53)
--- NOTE | 2019-03-18 14:16 | PN ---
Date/Time of Note Date/Time of Note DATE: 03/18/19 TIME: 14:14 Assessment/Plan VTE Prophylaxis Risk score (from Ns)>0 risk: 7 SCD applied (from Ns): Yes Pharmacological prophylaxis: other (On aspirin. Continue with surgeon DVT prophylaxis recommendations) Lines/Catheters IV Catheter Type (from Nrsg): Saline Lock Urinary Cath still in place: No Assessment/Plan Hospital Course Assessment and plan #Left knee osteoarthritis Continue with analgesics Physical therapy per surgeon Patient status post total left knee replacement Continue with wound care. Disposition plan. Continue with PT. Continue with analgesics. Overall appears stable. Continue current treatment. Continue supportive care Discussed POC with Dr. Lopez Result Diagram: 03/18/19 0510 03/18/19 0510 Results 24hrs Laboratory Tests Test 03/18/19 05:10 White Blood Count 6.9 Red Blood Count 4.18 L Hemoglobin 12.6 L Hematocrit 37.1 L Mean Corpuscular Volume 88.8 Mean Corpuscular Hemoglobin 30.1 Mean Corpuscular Hemoglobin Concent 34.0 Red Cell Distribution Width 13.6 Platelet Count 174 Mean Platelet Volume 9.6 Immature Granulocytes % 0.400 Neutrophils % 56.3 Lymphocytes % 23.9 Monocytes % 16.5 H Eosinophils % 2.5 Basophils % 0.4 Nucleated Red Blood Cells % 0.0 Immature Granulocytes # 0.030 Neutrophils # 3.9 Lymphocytes # 1.7 Monocytes # 1.1 H Eosinophils # 0.2 Basophils # 0.0 Nucleated Red Blood Cells # 0.0 Sodium Level 134 L Potassium Level 4.3 Chloride Level 100 Carbon Dioxide Level 30 Anion Gap 4 L Blood Urea Nitrogen 9 Creatinine 0.78 Est Glomerular Filtrat Rate mL/min > 60 Glucose Level 106 Calcium Level 8.4 Subjective 24 Hr Interval Summary Free Text/Dictation Comfortable present. Reports good pain control at present. Exam/Review of Systems Exam Vitals Vital Signs Date Temp Pulse Resp B/P (MAP) Pulse Ox O2 O2 Flow FiO2 Time Delivery Rate 03/18/19 97.5 71 18 105/68 100 Room Air 08:13 (80) 03/15/19 3.0 16:48 Intake and Output 03/17/19 03/17/19 03/18/19 1515:00 23:00 07:00 IntakeIntake Total 400 ml 750 ml OutputOutput Total 500 ml 1600 ml BalanceBalance -100 ml -850 ml Exam Constitutional: alert, oriented Psych: nl mood/affect Head: normocephalic Eyes: nl conjunctiva Neck: supple, non-tender Respiratory: clear to auscultation Cardiovascular: regular rate and rhythm Gastrointestinal: soft, non-tender Musculoskeletal: other (dressing LLE ) 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, nl mental status, nl speech Results Results 24hrs Laboratory Tests Test 03/18/19 05:10 White Blood Count 6.9 Red Blood Count 4.18 L Hemoglobin 12.6 L Hematocrit 37.1 L Mean Corpuscular Volume 88.8 Mean Corpuscular Hemoglobin 30.1 Mean Corpuscular Hemoglobin Concent 34.0 Red Cell Distribution Width 13.6 Platelet Count 174 Mean Platelet Volume 9.6 Immature Granulocytes % 0.400 Neutrophils % 56.3 Lymphocytes % 23.9 Monocytes % 16.5 H Eosinophils % 2.5 Basophils % 0.4 Nucleated Red Blood Cells % 0.0 Immature Granulocytes # 0.030 Neutrophils # 3.9 Lymphocytes # 1.7 Monocytes # 1.1 H Eosinophils # 0.2 Basophils # 0.0 Nucleated Red Blood Cells # 0.0 Sodium Level 134 L Potassium Level 4.3 Chloride Level 100 Carbon Dioxide Level 30 Anion Gap 4 L Blood Urea Nitrogen 9 Creatinine 0.78 Est Glomerular Filtrat Rate mL/min > 60 Glucose Level 106 Calcium Level 8.4 Medications Medication Current Medications IV Flush (NS 3 ml) 3 ml PER PROTOCOL IV Last administered on 03/17/19at 22:41; Admin Dose 3 ML; Start 03/15/19 at 14:30 Celecoxib (Celebrex) 100 mg BID PO Last administered on 03/18/19at 09:12; Admin Dose 100 MG; Start 03/16/19 at 09:00 Gabapentin (Neurontin) 100 mg TID PO Last administered on 03/18/19at 13:24; Admin Dose 100 MG; Start 03/15/19 at 21:00 Pantoprazole (Protonix Tab) 40 mg DAILY@06 PO Last administered on 03/18/19at 07:41; Admin Dose 40 MG; Start 03/17/19 at 06:00 Docusate Sodium (Colace) 200 mg BID PO Last administered on 03/18/19at 09:13; Admin Dose 200 MG; Start 03/16/19 at 09:00; Stop 03/19/19 at 08:59 Simethicone (Mylicon) 80 mg TID PRN PO .GAS; Start 03/15/19 at 14:30 Senna/Docusate Sodium (Senokot-S) 2 tab BID PRN PO .CONSTIPATION; Start 03/15/19 at 14:30 Magnesium Hydroxide (Milk Of Mag) 30 ml HS PRN PO .CONSTIPATION; Start 03/15/19 at 14:30 Bisacodyl (Dulcolax Supp) 10 mg DAILY PRN [place] .CONSTIPATION; Start 03/15/19 at 14:30 Sodium Biphosphate/ Sodium Phosphate (Fleet Enema) 133 ml DAILY PRN [place] .CONSTIPATION; Start 03/15/19 at 14:30 Naloxone HCl (Narcan) 0.2 mg Q2M PRN IV .RESP RATE; Start 03/15/19 at 14:30 Aspirin (Halfprin) 81 mg BID PO Last administered on 03/18/19at 09:14; Admin Dose 81 MG; Start 03/16/19 at 09:00 Oxycodone HCl (Oxycontin) 10 mg BID PO Last administered on 03/18/19at 09:15; Admin Dose 10 MG; Start 03/16/19 at 14:30 Hydromorphone HCl (Dilaudid) 3 mg Q3H PRN IV SEVERE PAIN LEVEL 7-10 Last administered on 03/18/19at 10:41; Admin Dose 3 MG; Start 03/17/19 at 17:30 JAMES LONGO NP Mar 18, 2019 14:16
[2019-03-18 20:30] VITALS: BP 127/77; PULSE 70; RESP 20
[2019-03-18] MEDS: traMADol 50 MG TAB PO PRN (20:53)
[2019-03-18] MEDS: NACL 0.9% 3 ML SYG IV SCH (20:56)
[2019-03-19 02:33] VITALS: BP 128/67; PULSE 71; RESP 20
[2019-03-19] MEDS: traMADol 50 MG TAB PO PRN (03:08)
[2019-03-19] MEDS: PANTOPRAZOLE (EC) 40 MG TAB PO SCH (07:04)
[2019-03-19 07:30] VITALS: BP 149/84; PULSE 74; RESP 20
[2019-03-19] MEDS: GABAPENTIN 100 MG CAP PO SCH ×2 (08:28→12:15)
[2019-03-19] MEDS: oxyCODONE (CR) 10 MG TAB [oxyCONTIN] PO SCH (08:28)
[2019-03-19] MEDS: ASPIRIN (EC) 81 MG TAB PO SCH (08:28)
[2019-03-19] MEDS: CELECOXIB 100 MG CAP PO SCH (08:28)
--- NOTE | 2019-03-19 13:03 | PN ---
Date/Time of Note Date/Time of Note DATE: 03/19/19 TIME: 13:03 Assessment/Plan VTE Prophylaxis Risk score (from Nsg)>0 risk: 7 SCD applied (from Nsg): Yes Pharmacological prophylaxis: other Lines/Catheters IV Catheter Type (from Nrsg): Saline Lock Urinary Cath still in place: No Assessment/Plan Hospital Course Subjective Patient complaining of postop pain, however is ready to go home Objective Physical exam General: Patient is laying in bed and answers questions appropriately Mentation: Patient is alert and oriented 4, Head: Normocephalic atraumatic Eyes: EOMI, pupils reactive to light Neck: Supple, nontender, midline Respiratory: Clear to auscultation bilaterally Cardiovascular: regular rate, no obvious murmurs Gastrointestinal: non-tender to palpation, bowel sounds heard. Neurological: Moves all extremities spontaneously Skin: No new skin lesions Assessment and plan Left knee osteoarthritis, status post left total knee arthroplasty -Orthopedic surgeon to manage -Pain control per pain management -Home health physical therapy and appropriate DME to be ordered per case management and orthopedic surgeon Chronic pain -Patient on Suboxone at home -Patient understands that he cannot be discharged on other opiate medication given his Suboxone prescription -Explained to patient that if surgical pain is uncontrolled with normal Suboxone dose, will need to come back to the ER Disposition -Patient is scheduled for discharge, however patient is to return to the ED if pain is uncontrolled with daily Suboxone and [id number] medications that are not to be taken in excess over the instructions on the label. -Patient to follow-up with orthopedic surgeon as soon as possible Result Diagram: 03/19/19 0509 03/19/19 0509 Results 24hrs Laboratory Tests Test 03/19/19 05:09 White Blood Count 6.6 Red Blood Count 4.27 L Hemoglobin 12.9 L Hematocrit 37.4 L Mean Corpuscular Volume 87.6 Mean Corpuscular Hemoglobin 30.2 Mean Corpuscular Hemoglobin Concent 34.5 Red Cell Distribution Width 13.4 Platelet Count 199 Mean Platelet Volume 9.6 Immature Granulocytes % 0.600 H Neutrophils % 59.5 Lymphocytes % 22.2 Monocytes % 15.4 H Eosinophils % 2.0 Basophils % 0.3 Nucleated Red Blood Cells % 0.0 Immature Granulocytes # 0.040 H Neutrophils # 3.9 Lymphocytes # 1.5 Monocytes # 1.0 H Eosinophils # 0.1 Basophils # 0.0 Nucleated Red Blood Cells # 0.0 Sodium Level 135 Potassium Level 4.2 Chloride Level 100 Carbon Dioxide Level 32 H Anion Gap 3 L Blood Urea Nitrogen 9 Creatinine 0.73 Est Glomerular Filtrat Rate mL/min > 60 Glucose Level 105 Calcium Level 8.5 Exam/Review of Systems Exam Vitals Vital Signs Date Temp Pulse Resp B/P (MAP) Pulse Ox O2 O2 Flow FiO2 Time Delivery Rate 03/19/19 98.6 74 20 149/84 95 Room Air 07:30 (105) 03/15/19 3.0 16:48 Intake and Output 03/18/19 03/18/19 03/19/19 1515:00 23:00 07:00 IntakeIntake Total 1000 ml 250 ml OutputOutput Total 800 ml 600 ml BalanceBalance 200 ml -350 ml Results Results 24hrs Laboratory Tests Test 03/19/19 05:09 White Blood Count 6.6 Red Blood Count 4.27 L Hemoglobin 12.9 L Hematocrit 37.4 L Mean Corpuscular Volume 87.6 Mean Corpuscular Hemoglobin 30.2 Mean Corpuscular Hemoglobin Concent 34.5 Red Cell Distribution Width 13.4 Platelet Count 199 Mean Platelet Volume 9.6 Immature Granulocytes % 0.600 H Neutrophils % 59.5 Lymphocytes % 22.2 Monocytes % 15.4 H Eosinophils % 2.0 Basophils % 0.3 Nucleated Red Blood Cells % 0.0 Immature Granulocytes # 0.040 H Neutrophils # 3.9 Lymphocytes # 1.5 Monocytes # 1.0 H Eosinophils # 0.1 Basophils # 0.0 Nucleated Red Blood Cells # 0.0 Sodium Level 135 Potassium Level 4.2 Chloride Level 100 Carbon Dioxide Level 32 H Anion Gap 3 L Blood Urea Nitrogen 9 Creatinine 0.73 Est Glomerular Filtrat Rate mL/min > 60 Glucose Level 105 Calcium Level 8.5 Medications Medication Current Medications IV Flush (NS 3 ml) 3 ml PER PROTOCOL IV Last administered on 03/18/19at 20:56; Admin Dose 3 ML; Start 03/15/19 at 14:30 Celecoxib (Celebrex) 100 mg BID PO Last administered on 03/19/19at 08:28; Admin Dose 100 MG; Start 03/16/19 at 09:00 Gabapentin (Neurontin) 100 mg TID PO Last administered on 03/19/19at 12:15; Admin Dose 100 MG; Start 03/15/19 at 21:00 Pantoprazole (Protonix Tab) 40 mg DAILY@06 PO Last administered on 03/19/19at 07:04; Admin Dose 40 MG; Start 03/17/19 at 06:00 Simethicone (Mylicon) 80 mg TID PRN PO .GAS; Start 03/15/19 at 14:30 Senna/Docusate Sodium (Senokot-S) 2 tab BID PRN PO .CONSTIPATION; Start 03/15/19 at 14:30 Magnesium Hydroxide (Milk Of Mag) 30 ml HS PRN PO .CONSTIPATION; Start 03/15/19 at 14:30 Bisacodyl (Dulcolax Supp) 10 mg DAILY PRN IN .CONSTIPATION; Start 03/15/19 at 14:30 Sodium Biphosphate/ Sodium Phosphate (Fleet Enema) 133 ml DAILY PRN IN .CONSTIPATION; Start 03/15/19 at 14:30 Naloxone HCl (Narcan) 0.2 mg Q2M PRN IV .RESP RATE; Start 03/15/19 at 14:30 Aspirin (Halfprin) 81 mg BID PO Last administered on 03/19/19at 08:28; Admin Dose 81 MG; Start 03/16/19 at 09:00 Oxycodone HCl (Oxycontin) 10 mg BID PO Last administered on 03/19/19at 08:28; Admin Dose 10 MG; Start 03/16/19 at 14:30 Tramadol HCl (Ultram) 50 mg Q6H PRN PO MODERATE PAIN LEVEL 4-6 Last administered on 03/19/19 03:08; Admin Dose 50 MG; Start 03/18/19 at 21:00 JOHN MARTINEZ Mar 19, 2019 13:03
[2019-03-19 14:00] VITALS: BP 139/84; PULSE 78; RESP 20
--- NOTE | 2019-03-21 16:05 | DS ---
DATE OF ADMISSION: 03/15/2019 DATE OF DISCHARGE: 03/19/2019 HOSPITAL COURSE: Mr. Ontiveros underwent a complex left total knee arthroplasty on 03/15/2019. There were no complications during the surgery. He was subsequently admitted to the medical floor. He receive d postoperative antibiotics, DVT prophylaxis. He progressed with physical therapy and was discharged home in stable condition. Upon passing physical therapy on March 18, 2019 there were no complicati ons during this hospital stay. He was to follow up within 10 to 14 days postoperatively. Dictated By: TARIQ RAMIREZ/VICKY Conf#: [id number] DID#: [id number]
== END 2019-03-19 15:55 | disposition home health service (06) | DRG 470 ==
LOC: REC 03-15 08:30 → MS1 03-15 18:45
PROVIDERS: ADMIT Orthopaedic Surgery Adult Reconstructive Orthopaedic Surgery; ATTEND Orthopaedic Surgery Adult Reconstructive Orthopaedic Surgery
PROC: 0SRD069 Replacement of Left Knee Joint with Oxidized Zirconium on Polyethylene Synthetic Substitute, Cemented, Open Approach (ICD-10-PCS; principal; 2019-03-15 10:30)
DX: M17.12 Unilateral primary osteoarthritis, left knee (principal); E66.9 Obesity, unspecified; G89.18 Other acute postprocedural pain; Z68.30 Body mass index [BMI] 30.0-30.9, adult
CPT/HCPCS: 73560; 80048; 85025; 86850; 86900; 86901; 88304; 88311; 97110; 97116; 97161; 97530; C1713; C1776; J0131; J0171; J0690; J0735; J1100; J1170; J1885; J2250; J2274; J2405; J2765; J2795; J3010; J3370; J7120